=== PATIENT | male | born 2000 | race Caucasian/White ===

== ENCOUNTER 2019-05-30 15:45 | Emergency (ER) | payer OTHER ==
[~2019-05-30] VITALS: Ht 182.9 cm; Wt 122.5 kg
--- OUTSIDE RECORDS SUMMARY | ~2019-05-30 | XMS | Encounter Summary ---
Demographics + + + | Address | [address] | | | [place] [address] | + + + | Home Phone | | + + + | Preferred Language | Unknown | + + + | Marital Status | Single | + + + | Baptist Affiliation | Unknown | + + + | Race | Unknown | + + + | Ethnic Group | Unknown | + + + Author + + + | Author | [facility] | | | and [place] | + + + | Organization | [facility] | | | and [place] [...] Team Providers + +------+ + | Care Veterinary Medicine Scientist Name | Role | Phone | + +------+ + | No, Physician | PCP | Unavailable | + +------+ + Reason for Visit +--------+ + | Reason | Comments | +--------+ + | Other | ryc | +--------+ + Encounter Details +--------+ + + + + | Date | Type | Department | Care Team | Description | +--------+ + + + + | 12/13/ | Telephone | [facility] | No, Physician p | Other (ryc ) | | 2018 | | [facility] | | | | | | [facility] | | | | | | [address]TH [facility], | | | | | | [place] [address] | | | | | | [phone] | | | +--------+ + + + [...] on file | | + + + + + + + | Job Start Date | Occupation | Industry | + + + + | Not on file | Not on file | Not on file | + + + + + + + + | Travel History | Travel Start | Travel End | + + + + + + | No recent travel history available. | + + documented as of this encounter Plan of Treatment Not on filedocumented as of this encounter Visit Diagnoses Not on filedocumented in this encounter"
--- OUTSIDE RECORDS SUMMARY | ~2019-05-30 | XMS | Clinical Summary ---
Demographics + + + | Address | [address] | | | [place] [address] | + + + | Home Phone | | + + + | Preferred Language | Unknown | + + + | Marital Status | Single | + + + | Latter Day Affiliation | Unknown | + + + | Race | Unknown | + + + | Ethnic Group | Unknown | + + + Author + + + | Author | [facility] | | | and [place] | + + + | Organization | [facility] | | | and [place] [...] Team Providers + +------+ + | Care Faculty Criminal Justice Name | Role | Phone | + +------+ + | No, Physician | PCP | Unavailable | + +------+ + Allergies No Known Allergies Medications + + + +---------+------+------+-------+ | Medication | Sig | Dispensed | Refills | Star | End | Statu | | | | | | t | Date | s | | | | | | Date | | | + + + +---------+------+------+-------+ | naproxen | Take 1 tablet by | 30 | 0 | 11/0 | | Activ | | (NAPROSYN) 500 mg | mouth 2 times daily | tablet | | 7/20 | | e | | tabletIndications: | (with breakfast & | | | 18 | | | | Acute right ankle | dinner). | | | | | | | pain | | | | | | | + + + +---------+------+------+-------+ Active Problems + + + | Problem | Noted Date | + + + | Class 2 obesity due to excess calories without serious | 01/09/2018 | | comorbidity with body mass index (BMI) of 36.0 to 36.9 in adult | | + + + Immunizations + + + + | Name | Administration Dates | Next Due | + + + + | DTAP, 5 DOSE (PED) | 09/24/2003, 08/05/1999, 02/09/1999, | | | | 01/05/1999, 1998 | | + + + + | HEP A, 2 DOSE | 03/27/2012, 09/19/2006 | | | (PED/ADOL) | | | + + + + | HIB HBOC CONJUGATE, | 08/05/1999, 02/09/1999, 01/05/1999, | | | 4 DOSE (PED) | 1998 | | + + + + | HPV, QUADRIVALENT, 3 | 03/27/2012 | | | DOSE (ADOL/ADULT) | | | + + + + | Hep B (PED/ADOL) 3 | 02/09/1999, 01/05/1999, 1998, | | | DOSE | 1998 | | + + + + | INFLUENZA PF | 03/06/2012 | | | TRIVALENT(PED/ADOL/A | | | | DULT)LILLIANKT | | | + + + + | IPV, 4 DOSE | 09/24/2003, 08/05/1999, 01/05/1999, | | | (PED/ADULT) | 1998 | | + + + + | MENINGOCOCCAL | 03/27/2012 | | | CONJUGATE,MENACTRA | | | | (PED/ADOL/ADULT) | | | + + + + | MMR, 2 DOSE | 09/24/2003, 08/05/1999 | | | (PED/ADULT) | | | + + + + | TDAP, (ADOL/ADULT) | 03/27/2012 | | + + + + | VARICELLA, 2 DOSE | 03/27/2012, 08/05/1999 | | | (VARIVAX) | | | + + + + Social History + [...] recent travel history available. | + + Last Filed Vital Signs + + + [...] | | + + + + + Plan of Treatment + + + + + | Health Maintenance | Due Date | Last Done | Comments | + + + + + | Well Child Check | | | | | | 2 | | | + + + + + | Vaccine: HPV (2 - | | 03/27/2012 | | | Male 2-dose series) | 3 | | | + + + + + | Vaccine: Influenza | | 03/06/2012 | | | (Season Ended) | 0 | | | + + + + + | Vaccine: | | 03/27/2012, 09/24/2003, | | | Dtap/Tdap/Td (7 - | 3 | 08/05/1999, Additional history | | | Td) | | exists | | + + + + + Results Not on filefrom Last 3 Months Insurance + +--------+ +--------+ +---------+--------+ | Payer | Benefi | Subscriber | Effect | Phone | Address | Type | | | t Plan | ID | lazaro | | | | | | / | | Dates | | | | | | Group | | | | | | + +--------+ +--------+ +---------+--------+ | [employer] | SAIF | [id number] | 11/29/ | [phone] | | Indemn | | | WC | | 2018-P | 5 | | ity | | | | | resent | | | | + +--------+ +--------+ +---------+--------+ + +--------+ +--------+ + + | Guarantor Name | Accoun | Relation to | Date | Phone | Billing Address | | | t Type | Patient | of | | | | | | | | | | + +--------+ +--------+ + + | Suhail Zepeda | Worker | Self | [birth year] | | [address] | | | s Comp | | 2000 | [phone] | [place], [place] | | | | | | 4 (Home) | [phone] | + +--------+ +--------+ + + | Suhail Zepeda | Person | Self | [birth year] | | [address] | | | al/Fam | | 2000 | [phone] | [place], [place] | | | juan | | | 4 (Home) | [phone] | + +--------+ +--------+ + + Advance Directives + + + + + | Type | Date Recorded | Patient | Explanation | | | | Network Intern | | + + + + + | Power of | | | | | Car Unloader | | | | + + + + + | Advance | 12/12/2017 6:51 | | | | Directive | PM | | | + + + + +"
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
--- OUTSIDE RECORDS SUMMARY | ~2019-05-30 | XMS | Clinical Summary ---
Demographics + + + | Address | [address] | | | [place] [address] | + + + | Home Phone | | + + + | Preferred Language | Unknown | + + + | Marital Status | Single | + + + | Mandaeism Affiliation | Unknown | + + + | Race | Unknown | + + + | Ethnic Group | Unknown | + + + Author + + + | Author | [facility] | | | and [place] | + + + | Organization | [facility] | | | and [place] [...] Team Providers + +------+ + | Care Coke Production Heater Name | Role | Phone | + [...] | | + +--------+ +--------+ +---------+--------+ | [employer] | SAIF | [id number] | 11/29/ | [phone] | | Indemn | | | WC [...] | Self | [birth year] | | [address] | | | s Comp | | 2000 | [phone] | [place], [place] | | | | | | 4 (Home) | [address] | + +--------+ +--------+ + + | Suhail Zepeda | Person | Self | [birth year] | | [address] | | | al/Fam | | 2000 | [phone] | [place], [place] | | | juan | | | 4 (Home) | [phone] | + +--------+ +--------+ + + Advance Directives + + + + + | Type | Date Recorded | Patient | Explanation | | | | Cashier Receptionist | | + + + + + | Power of | | | | | Hospital Laboratory Technician | | | | + + + + + | Advance | 12/12/2017 6:51 | | | | Directive | PM | | | + + + + +"
--- OUTSIDE RECORDS SUMMARY | ~2019-05-30 | XMS | Encounter Summary ---
Demographics + + + | Address | [address] | | | [place] [address] | + + + | Home Phone | | + + + | Preferred Language | Unknown | + + + | Marital Status | Single | + + + | Gnosticist Affiliation | Unknown | + + + | Race | Unknown | + + + | Ethnic Group | Unknown | + + + Author + + + | Author | [facility] | | | and [place] | + + + | Organization | [facility] | | | and [place] [...] Team Providers + +------+ + | Care Continuous Loft Operator Name | Role | Phone | + [...] | Encounter | [facility] | BOAT TENDER-FLEET ASSISTANT [address] | right foot, | | | | [place] | [address] [place] | subsequent encounter | | | | [place], [place] | [place] [address] | | | | | [address] | [phone] | | | | | [phone] | | | +--------+ + + + [...] for pt to return clinic call at [phone] Ministerio Lloyd [facility]. documented in this encounter Plan of Treatment [...]
--- OUTSIDE RECORDS SUMMARY | ~2019-05-30 | XMS | Encounter Summary ---
Demographics + + + | Address | [address] | | | [place] [address] | + + + | Home Phone | | + + + | Preferred Language | Unknown | + + + | Marital Status | Single | + + + | Voodoo Affiliation | Unknown | + + + | Race | Unknown | + + + | Ethnic Group | Unknown | + + + Author + + + | Author | [facility] | | | and [place] | + + + | Organization | [facility] | | | and [place] [...] Team Providers + +------+ + | Care Mushroom Cutter Name | Role | Phone | + [...] (ryc ) | | 2018 | | [facility] | | | | | | MEDICAL CLINIC [address] | | | | | | [address]TH [facility], | | | | | | [place] [address] | | | | | | [phone] | | | +--------+ + + + [...]
--- OUTSIDE RECORDS SUMMARY | ~2019-05-30 | XMS | Encounter Summary ---
Demographics + + + | Address | [address] | | | [place] [address] | + + + | Home Phone [...] Author + + + | Author | [facility] | | | and [place] | + + + | Organization | [facility] | | | and [place] | + + + | Address | Unknown | + + + | Phone | Unavailable | + + + Support + + +---------+ + | Name | Relationship | Address | Phone | + + +---------+ + | Airma Mary | ECON | Unknown | | + + +---------+ + Care Team Providers + +------+ + | Care Meat Hanger Name | Role | Phone | + [...] ankle | | 2018 | Visit | [facility] | EMPLOYEE DEVELOPMENT MANAGER-CHUTE WORKER 506 | pain (Primary Dx); | | | | [facility] | [address] [place] | Crush injury of | | | | [address] [place], | [place] [address] | right foot, | | | | [place] [address] | [phone] | subsequent encounter | | | | [phone] | | | +--------+---------+ + + + [...] encounter Patient Instructions Patient Instructions Marybel Whiting APRN-CHUTE WORKER - 12/12/2017 6:24 PM PSTFormatting of thi [...] until the sp rain heals. Prescription or rutg-xzt-ojzcbnr pain medicines. These help reduce swelling and [...] get worse New symptoms Date Last Reviewed: 04/15/201519998828-0208 [employer] [place] [address]. All [facility] ts reserved. This information is not intended [...] walks on it. He was seen in [place] last week and they didn't do any [...] week and have him follow-up with [place] Return in about 1 week (around 12/19/2017) for Work Comp Provider. QUINCY BarreraP102/11/201718:36 [facility] Note: Part of this report was transcribed using voice recognition software. Every effort wa s made to ensure accuracy. However, inadvertent computerized improvement rn errors may be pre sent. documente d in this encounter Plan of Treatment [...]
--- OUTSIDE RECORDS SUMMARY | ~2019-05-30 | XMS | Encounter Summary ---
Demographics + + + | Address | [address] | | | [place] [address] | + + + | Home Phone | | + + + | Preferred Language | Unknown | + + + | Marital Status | Single | + + + | Methodist Affiliation | Unknown | + + + | Race | Unknown | + + + | Ethnic Group | Unknown | + + + Author + + + | Author | [facility] | | | and [place] | + + + | Organization | [facility] | | | and [place] [...] Team Providers + +------+ + | Care Operation Manager Name | Role | Phone | + [...] ankle | | 2018 | Visit | [facility] | RETAIL LEADER-SAWMILL EQUIPMENT OPERATOR [address] | pain (Primary Dx); | | | | [facility] [address] | [address] [place] | Crush injury of | | | | [address] [place], | [place] [address] | right foot, | | | | [place] [address] | [phone] | subsequent encounter | | | | [phone] | | | +--------+---------+ + + + [...] encounter Patient Instructions Patient Instructions Marybel Whiting APRN-SAWMILL EQUIPMENT OPERATOR - 12/12/2017 6:24 PM PSTFormatting of thi [...] until the sp rain heals. Prescription or txuq-hdx-tozlsko pain medicines. These help reduce swelling and [...] get worse New symptoms Date Last Reviewed: 04/15/201519990242-1523 [employer]. [address] [place] [address]. All [facility] ts reserved. This information is not intended [...] walks on it. He was seen in [place] last week and they didn't do any [...] 12/19/2017) for Work Comp Provider. QUINCY BarreraP102/11/201718:36 [facility], Walk-in Clinic Note: Part of this report was transcribed using voice recognition software. Every effort wa s made to ensure accuracy. However, inadvertent computerized group worker errors may be pre sent. documente d [...]
--- OUTSIDE RECORDS SUMMARY | ~2019-05-30 | XMS | Encounter Summary ---
Demographics + + + | Address | [address] | | | [place] [address] | + + + | Home Phone | | + + + | Preferred Language | Unknown | + + + | Marital Status | Single | + + + | Rastafarian Affiliation | Unknown | + + + | Race | Unknown | + + + | Ethnic Group | Unknown | + + + Author + + + | Author | and [facility] | | | and [place] | + + + | Organization | and [facility] | | | and [...] Team Providers + +------+ + | Care Sales Development Coordinator Name | Role | Phone | + [...] | Encounter | [facility] | RETAIL ASSISTANT-AIRCRAFT MAINTENANCE ENGINEER [address] | pain | | | | [address] [place] | [address] [place] | | | | | [place], [place] | [place] [address] | | | | | [address] | [phone] | | | | | [phone] | | | +--------+ + + + [...]
--- OUTSIDE RECORDS SUMMARY | ~2019-05-30 | XMS | Encounter Summary ---
Demographics + + + | Address | [address] | | | [place] [address] | + + + | Home Phone | | + + + | Preferred Language | Unknown | + + + | Marital Status | Single | + + + | Yazdanism Affiliation | Unknown | + + + | Race | Unknown | + + + | Ethnic Group | Unknown | + + + Author + + + | Author | [facility] | | | and [place] | + + + | Organization | [facility] | | | and [place] [...] Team Providers + +------+ + | Care Tractor Operator Battery Name | Role | Phone | + [...] | Encounter | [facility] | CERTIFIED SCRUB TECH-DIRECTOR OF INSTITUTIONAL GIVING [address] | pain | | | | [address] | [address] [place] | | | | | [place], [place] | [place] [address] | | | | | [address] | [phone] | | | | | [phone] | | | +--------+ + + + [...]
[~2019-05-30 15:45] MED LIST: CRUTCH1 EACH; IBUPROFEN600 MG PO
== END 2019-05-30 16:43 | disposition home or self-care (01) ==
LOC: ED 15:45
DX: S66.912A Strain of unspecified muscle, fascia and tendon at wrist and hand level, left hand, initial encounter (principal); Y04.0XXA Assault by unarmed brawl or fight, initial encounter
CPT/HCPCS: 73140; 99283-25

== ENCOUNTER 2019-07-29 12:48 | Emergency (ER) | payer OTHER ==
[~2019-07-29] VITALS: Ht 182.9 cm; Wt 108.9 kg
--- NOTE | 2019-07-29 15:32 | EKG ---
[facility] [address] [facility] [place], [place] [address] Signed Sinus tachycardia Otherwise normal ECG No previous ECGs available Confirmed by HELADIO MCKEON MD ([id number]) on 07/29/2019 3:32:11 PM Electronically Signed By: HELADIO MCKEON MD 07/29/19 1532 PATIENT NAME: ANDRIY VILA CRUZ Electrocardiogram DATE OF : 89 PHYSICIAN: HELADIO MCKEON MD REPORT #: [id number] REPORT IS CONFIDENTIAL AND NOT TO BE RELEASED WITHOUT AUTHORIZATION
== END 2019-07-29 14:49 | disposition home or self-care (01) ==
LOC: ED 12:48
DX: F41.9 Anxiety disorder, unspecified (principal); R06.4 Hyperventilation
CPT/HCPCS: 80053; 83735; 84484; 85025; 93005; 93010; 99284-25

== ENCOUNTER 2019-08-02 11:50 | Emergency (ER) | payer OTHER ==
[~2019-08-02] VITALS: Ht 182.9 cm; Wt 108.9 kg
--- OUTSIDE RECORDS SUMMARY | ~2019-08-02 | XMS | Encounter Summary ---
Demographics + + + | Address | [address] | | | [place] [address] | + + + | Home Phone | | + + + | Preferred Language | Unknown | + + + | Marital Status | Single | + + + | Oriental Orthodox Affiliation | Unknown | + + + | Race | Unknown | + + + | Ethnic Group | Unknown | + + + Author + + + | Author | [facility] | | | and [place] | + + + | Organization | [facility] | | | and [place] | + + + | Address | Unknown | + + + | Phone | Unavailable | + + + Support + + +---------+ + | Name | Relationship | Address | Phone | + + +---------+ + | Airam Mary | ECON | Unknown | | + + +---------+ + Care Team Providers + +------+ + | Care Academic Affairs Dean Name | Role | Phone | + +------+ + | No, Physician | PCP | Unavailable | + +------+ + Reason for Visit +--------+--------+ + | Reason | Onset | Comments | | | Date | | +--------+--------+ + | Other | 12/13/ | ryc | | | 2018 | | +--------+--------+ + Encounter Details +--------+ + + + + | Date | Type | Department | Care Team | Description | +--------+ + + + + | 12/13/ | Telephone | [place] [facility] | No, Physician p | Other ([facility] ) | | 2018 | | [facility] | | | | | | MEDICAL CLINIC [address] | | | | | | [address] [place], | | | | | | [place] [address] | | | | | | [phone] | | | +--------+ + + + + Social History + +-------+ +--------+------+ | Tobacco Use | Types | Packs/Day | Years | Date | | | | | Used | | + +-------+ +--------+------+ | Never Smoker | | | | | + +-------+ +--------+------+ + +---+---+---+ | Smokeless Tobacco: | | | | | Never Used | | | | + +---+---+---+ + + + | Sex Assigned at | Date Recorded | | | | + + + | Not on file | | + + + documented as of this encounter Miscellaneous Notes Telephone Encounter - Ministerio Lloyd CC CMA - 12/13/2017 4:41 PM PSTPt informed of result s. Understood and had no questions. Ministerio Lloyd CMA. elephone Encounte r - Ministerio Lloyd CC CMA - 12/13/2017 4:40 PM PST----- Message from ALISON Benito se at 12/13/2017 7:15 PST ----- No acute findings on your ankle x-ray. They did note a bone called Os Trigonum (extra bone that sometimes develops that could be associated with ankle pain. Continue symptomatic mathew tment and follow-up if no improvement with your primary care provider in the next 2 weeksEle ctronically signed by YESSY Blank CMA at 12/13/2017 4:40 PM PSTTelephone Encounter - Annamaria [place] - 12/13/2017 3:45 PM PSTPt states he is returning a call to [facility] Please call pt Thanks ANNAMARIA documented in t his encounter Plan of Treatment Not on filedocumented as of this encounter Visit Diagnoses Not on filedocumented in this encounter"
--- OUTSIDE RECORDS SUMMARY | ~2019-08-02 | XMS | Encounter Summary ---
Demographics + + + | Address | [address] | | | [place] [address] | + + + | Home Phone | | + + + | Preferred Language | Unknown | + + + | Marital Status | Single | + + + | Jehovah'S Witness Affiliation | Unknown | + + + | Race | Unknown | + + + | Ethnic Group | Unknown | + + + Author + + + | Author | [facility] | | | and [place] | + + + | Organization | [facility] | | | and [place] | [...] Team Providers + +------+ + | Care Dining Room Host/Hostess Name | Role | Phone | + +------+ + | No, Physician | PCP | Unavailable | + +------+ + Reason for Visit + + + | Reason | Comments | + + + | Foot Injury | right foot injury x 2 weeks Workers Comp | + + + Encounter Details +--------+---------+ + + + | Date | Type | Department | Care Team | Description | +--------+---------+ + + + | 12/12/ | Office | [place] [facility] | Marybel Whiting, | Acute right ankle | | 2018 | Visit | [facility] | HISTORIOGRAPHY TEACHER-DOORPERSON OR LUGGAGE PORTER [address] | pain (Primary Dx); | | | | [facility] [address] | [address] [place] | Crush injury of | | | | [address] [place], | [place] [address] | right foot, | | | | [place] [address] | [phone] | subsequent encounter | | | | [phone] | | | +--------+---------+ + + + Social History + +-------+ [...] + + documented as of this encounter Last Filed Vital Signs + + + + + | Vital Sign | Reading | Time Taken | Comments | + + + + + | Blood Pressure | 130/76 | 12/12/2017 5:43 PM | | | | | PST | | + + + + + | Pulse | 62 | 12/12/2017 5:43 PM | | | | | PST | | + + + + + | Temperature | 36.6 C (97.9 F) | 12/12/2017 5:43 PM | | | | | PST | | + + + + + | Respiratory Rate | 20 | 12/12/2017 5:43 PM | | | | | PST | | + + + + + | Oxygen Saturation | 100% | 12/12/2017 5:43 PM | | | | | PST | | + + + + + | Inhaled Oxygen | - | - | | | Concentration | | | | + + + + + | Weight | 120.7 kg (266 lb) | 12/12/2017 5:43 PM | | | | | PST | | + + + + + | Height | 182.9 cm (6') | 12/12/2017 5:43 PM | | | | | PST | | + + + + + | Body Mass Index | 36.08 | 12/12/2017 5:43 PM | | | | | PST | | + + + + + documented in this encounter Patient Instructions Patient Instructions Marybel Whiting HISTORIOGRAPHY TEACHER-DOORPERSON OR LUGGAGE PORTER - 12/12/2017 6:24 PM PSTFormatting of thi s note might be different from the original. Understanding Ankle Sprain The ankle is the joint where the leg and foot meet. Bones are held in place by connective t issue called ligaments. When ankle ligaments are stretched to the point of pain and injury, it is called an ankle sprain. A sprain can tear the ligaments. These tears can be very small but still cause pain. Ankle sprains can be mild or severe. What causes an ankle sprain? A sprain may occur when you twist your ankle or bend it too far. This can happen when you s tumble or fall. Things that can make an ankle sprain more likely include: Having had an ankle sprain before Playing sports that involve running and jumping. Or playing contact sports such as footb all or hockey. Wearing shoes that don t support your feet and ankles well Having ankles with poor strength and flexibility Symptoms of an ankle sprain Symptoms may include: Pain or soreness in the ankle Swelling Redness or bruising Not being able to walk or put weight on the affected foot Reduced range of motion in the ankle A popping or tearing feeling at the time the sprain occurs An abnormal or dislocated look to the ankle Instability or too much range of motion in the ankle Treatment for an ankle sprain Treatment focuses on reducing pain and swelling, and avoiding further injury. Treatments ma y include: Resting the ankle. Avoid putting weight on it. This may mean using crutches until the sp rain heals. Prescription or kxqv-ywc-cpclroa pain medicines. These help reduce swelling and pain. Cold packs. These help reduce pain and swelling. Raising your ankle above your heart. This helps reduce swelling. Wrapping the ankle with an elastic bandage or ankle brace. This helps reduce swelling an d gives some support to the ankle. In rare cases, you may need a cast or boot. Stretching and other exercises. These improve flexibility and strength. Heat packs. These may be recommended before doing ankle exercises. Possible complications of an ankle sprain An ankle that has been weakened by a sprain can be more likely to have repeated sprains aft erward. Doing exercises to strengthen your ankle and improve balance can reduce your risk fo r repeated sprains. Other possible complications are long-term (chronic) pain or an ankle th at remains unstable. When to call your healthcare provider Call your healthcare provider right away if you have any of these: Fever of 100.4F (38C) or higher, or as directed Pain, numbness, discoloration, or coldness in the foot or toes Pain that gets worse Symptoms that don t get better, or get worse New symptoms Date Last Reviewed: 04/15/201519991994-1448 [employer] [address] [place] [address], [place] [address]. All righ ts reserved. This information is not intended as a substitute for professional medical care. Always follow your healthcare professional's instructions. documented in this encounter Progress Notes Marybel Whiting APRN-FNP - 12/12/2017 4:50 PM PSTFormatting of this note might be diffe rent from the original. Subjective: Patient ID: Suhail Zepeda is a 17 y.o. male. Chief Complaint Chief Complaint Patient presents with Foot Injury right foot injury x 2 weeks Workers Comp HPI Here today with complaints of right ankle pain for two weeks. This is a workman's comp visi t. Says he was pulling a heavy trailer at work on 11/29/2017 and the front wheel ran over th e top of his foot and stopped on his foot. He tried to pull his foot out and ended up twisti ng his ankle. The first day he had some swelling to his lateral ankle. He feels like his ankle is snappin g and popping when he walks on it. He was seen in [place] last week and they didn't do any imaging. He filed it under his own insurance. They gave him an ankle brace that supports hi s ankle which seems to help some. He hasn't tried any otc pain medication. Overall doesn't s eem to be improving; feels it is getting worse. He is working 10 hour shifts and doesn't fee l he can continue because it is so painful. No past medical history on file. No past surgical history on file. Review of Systems See [facility] No Known Allergies There are no active problems to display for this patient. No current outpatient prescriptions on file prior to visit. No current facility-administered medications on file prior to visit. Objective: Vitals: 12/12/17 1743 BP: 130/76 Pulse: 62 Resp: 20 Temp: 36.6 C (97.9 F) PainSc: 7 PainLoc: Foot Physical Exam Constitutional: He is oriented to person, place, and time. He appears well-developed and we ll-nourished. No distress. Musculoskeletal: Right ankle: He exhibits normal range of motion, no swelling, no ecchymosis, no deform ity and normal pulse. Tenderness. Lateral malleolus and AITFL tenderness found. No medial ma lleolus, no CF ligament, no posterior TFL, no head of 5th metatarsal and no proximal fibula tenderness found. Achilles tendon normal. Right foot: There is tenderness, bony tenderness and crepitus. There is normal range o f motion and no swelling. Feet: Neurological: He is alert and oriented to person, place, and time. Coordination normal. Skin: Skin is warm and dry. No rash noted. No erythema. No pallor. Psychiatric: He has a normal mood and affect. His behavior is normal. Judgment and thought content normal. No results found for this or any previous visit (from the past 24 hour(s)). XR FOOT RIGHT 3 + VW XR ANKLE RIGHT 3 + VW Assessment: 1. Acute right ankle pain - naproxen (NAPROSYN) 500 mg tablet; Take 1 tablet by mouth 2 times daily (with breakfast & dinner). Dispense: 30 tablet; Refill: 0 - XR Ankle Right 3 + Vw; Future 2. Crush injury of right foot, subsequent encounter - XR Foot Right 3 + Vw; Future Plan: Reported right foot crush injury with twisting ankle injury two weeks ago at work. Minimal swelling and discoloration at time of injury none in currently. Reports he continues to hav e severe pain right lateral malleolus and right footed with weightbearing and complains of c repitus to his ankle while he is walking. Since he is unable to continue standing and walki ng for 10 hours a day at work. Medical exam is pretty unremarkable. She does have some ten derness in the right lateral malleolus and right fourth metatarsal on exam. Will order righ t ankle and right foot x-ray. Light duty for a week and have him follow-up with workman's c omp doc in 1 week Return in about 1 week (around 12/19/2017) for Work Comp Provider. QUINCY BarreraP102/11/201718:36 [facility] Note: Part of this report was transcribed using voice recognition software. Every effort wa s made to ensure accuracy. However, inadvertent computerized studio producer errors may be pre sent. angie d in this encounter Plan of Treatment Not on filedocumented as of this encounter Results XR Foot Right 3 + Vw (12/12/2017 7:07 PM PST) + + | Specimen | + + | | + + + + + | Impressions | Performed At | + + + | IMPRESSION: No acute finding Bifid sesamoid bone 1st toe. | [facility] | | This finding can be associated with pain. Dictated by: Rene Muñiz | | | AM | | + + + + + + | Narrative | Performed At | + + + | EXAMINATION: XR FOOT RIGHT 3 + VW HISTORY: right foot pain | [facility] | | after crush injury two weeks ago COMPARISON STUDY: None | | | FINDINGS: Images in multiple views showed no significant soft tissue | | | or bony abnormality. If concern for acute fracture remains clinically | | | follow-up images in 10 to 14 days recommended. Bifid sesamoid bone | | | 1st toe.. | | + + + + + | Procedure Note | + + | Yair, Inocencio Results In - 12/13/2017 7:00 AM PST EXAMINATION:XR FOOT RIGHT 3 + | | VWHISTORY:right foot pain after crush injury two weeks agoCOMPARISON | | STUDY:NoneFINDINGS:Images in multiple views showed no significant soft tissue or bony | | abnormality.If concern for acute fracture remains clinically follow-up images in 10 to | | 14 days recommended. Bifid sesamoid bone 1st toe..IMPRESSION: IMPRESSION:No acute | | findingBifid sesamoid bone 1st toe. This finding can be associated with pain.Dictated | | by: Rene Muñiz | |None | | | |FINDINGS: | |Images in multiple views showed no significant soft tissue or bony abnormality. | |If concern for acute fracture remains clinically follow-up images in 10 to 14 days recommen ded. Bifid sesamoid bone 1st toe.. | | | |IMPRESSION: | |IMPRESSION: | |No acute finding | | | |Bifid sesamoid bone 1st toe. This finding can be associated with pain. | | | |Dictated by: Rene Muñiz | | | | | + + + +---------+ + + | Performing | Address | City/State/Zipcode | Phone Number | | Organization | | | | + +---------+ + + | [facility] | | | | + +---------+ + + XR Ankle Right 3 + Vw (12/12/2017 7:06 PM PST) + + | Specimen | + + | | + + + + + | Impressions | Performed At | + + + | IMPRESSION: No acute finding Os trigonum dorsal ankle. This | [facility] | | finding can be associated with dorsal ankle pain. Dictated by: | | | Rene Muñiz Electronically Signed by: Rene Muñiz on | | | 12/13/2017 6:56 AM | | + + + + + + | Narrative | Performed At | + + + | EXAMINATION: XR ANKLE RIGHT 3 + VW HISTORY: right ankle pain | [facility] | | for two weeks after twisting it during a right foot crush injury | | | COMPARISON STUDY: None FINDINGS: Images in multiple views showed | | | no significant soft tissue or bony abnormality. If concern for acute | | | fracture remains clinically follow-up images in 10 to 14 days | | | recommended. Os trigonum dorsal ankle.. | | + + + + + | Procedure Note | + + | Yair, Rad Results In - 12/13/2017 7:00 AM PST EXAMINATION:XR ANKLE RIGHT 3 + | | VWHISTORY:right ankle pain for two weeks after twisting it during a right foot crush | | injuryCOMPARISON STUDY:NoneFINDINGS:Images in multiple views showed no significant soft | | tissue or bony abnormality.If concern for acute fracture remains clinically follow-up | | images in 10 to 14 days recommended. Os trigonum dorsal ankle..IMPRESSION: IMPRESSION:No | | acute findingOs trigonum dorsal ankle. This finding can be associated with dorsal | | ankle pain.Dictated by: Rene MuñizElectronically Signed by: Rene Muñiz on | | 12/13/2017 6:56 AM | | | |FINDINGS: | |Images in multiple views showed no significant soft tissue or bony abnormality. | |If concern for acute fracture remains clinically follow-up images in 10 to 14 days recommen ded. Os trigonum dorsal ankle.. | | | |IMPRESSION: | |IMPRESSION: | |No acute finding | | | |Os trigonum dorsal ankle. This finding can be associated with dorsal ankle pain. | | | |Dictated by: Rene Muñiz | | | | | + + + +---------+ + + | Performing | Address | City/State/Zipcode | Phone Number | | Organization | | | | + +---------+ + + | [facility] | | | | + +---------+ + + documented in this encounter Visit Diagnoses + + | Diagnosis | + + | Acute right ankle pain - Primary | + + | Crush injury of right foot, subsequent encounter | + + documented in this encounter"
--- OUTSIDE RECORDS SUMMARY | ~2019-08-02 | XMS | Encounter Summary ---
Demographics + + + | Address | [address] | | | [place] [address] | + + + | Home Phone | | + + + | Preferred Language | Unknown | + + + | Marital Status | Single | + + + | Restorationism Affiliation | Unknown | + + + | Race | Unknown | + + + | Ethnic Group | Unknown | + + + Author + + + | Author | [facility] | | | and [place] | + + + | Organization | [facility] | | | and [place] [...] Team Providers + +------+ + | Care Incubator Tender Name | Role | Phone | + +------+ + | No, Physician | PCP | Unavailable | + +------+ + Encounter Details +--------+ + + + + | Date | Type | Department | Care Team | Description | +--------+ + + + + | 12/12/ | Hospital | [place] [facility] | Marybel Whiting, | Acute right ankle | | 2018 | Encounter | [facility] | BROADLOOM WEAVER-ANATOMY PROFESSOR [address] | pain | | | | [address] | [address] [place] | | | | | [place], [place] | [place] [address] | | | | | [address] | [phone] | | | | | [phone] | | | +--------+ + + + [...] + + documented as of this encounter Medications at Time of Discharge + + + +---------+ + + | Medication | Sig | Dispensed | Refills | Start | End Date | | | | | | Date | | + + + +---------+ + + | naproxen | Take 1 tablet by | 30 | 0 | 12/13/19 | | | (NAPROSYN) 500 mg | mouth 2 times daily | tablet | | 18 | | | tabletIndications: | (with breakfast & | | | | | | Acute right ankle | dinner). | | | | | | pain | | | | | | + + + +---------+ + + documented as of this encounter Plan of Treatment Not on filedocumented as of this encounter Procedures + +--------+ + + + | Procedure Name | Priori | Date/Time | Associated Diagnosis | Comments | | | ty | | | | + +--------+ + + + | XR ANKLE RIGHT 3 + | Routin | 12/12/2017 | Acute right ankle | Results for this | | VW | e | 7:06 PM | pain | procedure are in the | | | | PST | | results section. | + +--------+ + + + documented in this encounter Results XR Ankle Right 3 + Vw (12/12/2017 [...] + + | Acute right ankle pain | + + documented in this encounter"
--- OUTSIDE RECORDS SUMMARY | ~2019-08-02 | XMS | Clinical Summary ---
Demographics + + + | Address | [address] | | | [place] [address] | + + + | Home Phone | | + + + | Preferred Language | Unknown | + + + | Marital Status | Single | + + + | Church Affiliation | Unknown | + + + | Race | Unknown | + + + | Ethnic Group | Unknown | + + + Author + + + | Author | [facility] | | | and [place] | + + + | Organization | [facility] | | | and [place] [...] Team Providers + +------+ + | Care Pet House Sitter Name | Role | Phone | + [...] Influenza | | 03/06/19 | | | (Season Ended) | 0 | 13 | | + [...] | | + +--------+ +--------+ +---------+--------+ | Admittor | [employer] | [phone] | 11/29/ | [phone] | | Indemn | | | WC [...] | Self | [birth year] | | [address] | | | s Comp | | 2000 | [phone] | [place] | | | | | | 4 (Home) | [phone] | + +--------+ +--------+ + + | Suhail Zepeda | Person | Self | [birth year] | | [address] | | | al/Fam | | 2000 | [phone] | [place] | | | juan | | | 4 ([place]) | [phone] | + +--------+ +--------+ + + Advance Directives + + + + + | Type | Date Recorded | Patient | Explanation | | | | Saas Architect | | + + + + + | Power of | | | | | Chlorinator Operator | | | | + + + + + | Advance | 12/12/2017 6:51 | | | | Directive | PM | | | + + + + +"
--- OUTSIDE RECORDS SUMMARY | ~2019-08-02 | XMS | Encounter Summary ---
Demographics + + + | Address | [address] | | | [place] [address] | + + + | Home Phone | | + + + | Preferred Language | Unknown | + + + | Marital Status | Single | + + + | Mu-Ism Affiliation | Unknown | + + + | Race | Unknown | + + + | Ethnic Group | Unknown | + + + Author + + + | Author | [facility] | | | and [place] | + + + | Organization | [facility] | | | and [...] Team Providers + +------+ + | Care Jet Handler Name | Role | Phone | + [...] | Encounter | [facility] | SALES LEAD GENERATOR-TRAINING FACILITATOR [address] | right foot, | | | | [place] | [address] [place] | subsequent encounter | | | | [place], [place] | [place] [address] | | | | | [address] | [phone] | | | | | [phone] | | | +--------+ + + + [...] for pt to return clinic call at [phone] [facility]. documented in this encounter Plan [...]
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
== END 2019-08-02 13:34 | disposition home or self-care (01) ==
LOC: ED 11:50
DX: S60.221A Contusion of right hand, initial encounter (principal); W22.8XXA Striking against or struck by other objects, initial encounter
CPT/HCPCS: 73130; 73140; 99283-25

== ENCOUNTER 2019-09-28 07:18 | Emergency (ER) | payer OTHER ==
[~2019-09-28] VITALS: Ht 182.9 cm; Wt 108.9 kg
--- OUTSIDE RECORDS SUMMARY | ~2019-09-28 | XMS | Clinical Summary ---
Demographics + + + | Address | [address] [place] [address] | | | [place] [address] | + + + | Home Phone | | + + + | Preferred Language | Unknown | + + + | Marital Status | Single | + + + | Latter Day Affiliation | Unknown | + + + | Race | White | + + + | Ethnic Group | Not or | + + + Author + + + | Author | [facility] | | | and [place] | + + + | Organization | [facility] | | | and [place] | [...] Team Providers + +------+ + | Care Computer Engineering Technician Name | Role | Phone | + [...] on file | | + + + Last Filed Vital Signs + [...] Health Maintenance | Due Date | Last | Comments | | | | Done | | + + + + + | Hepatitis C | | | | | Screening | 9 | | | + + + + + | Med Mgmt: BUN | | | | | | 9 | | | + + + + + | Med Mgmt: Cr | | | | | | 9 | | | + + + + + | Medication | | | | | Management | 9 | | | + + + + + | Well Child Check | | | | | | 2 | | | + + + + + | Vaccine: HPV (2 - | | 03/27/19 | | | Male 2-dose series) | 3 | 13 | | + + + + + | Vaccine: Influenza | | 03/06/19 | | | (#1) | 0 | 13 | | + + + + + | Vaccine: | | 03/27/19 | | | Dtap/Tdap/Td (7 - | 3 | 13, | | | Td) | | 09/24/19 | | | | | 04, | | | | | 08/05/19 | | | | | 00, | | | | | Addition | | | | | al | | | | | history | | | | | exists | | + + [...] | | + +--------+ +--------+ +---------+--------+ | [employer] | SAIF | [phone] | 11/29/ | [phone] | | Indemn | | | WC [...] Worker | Self | [birth year] | | [address] [place] [address] | | | s Comp | | 2000 | [phone] | [place] | | | | | | 4 (Home) | [phone] | + +--------+ +--------+ + + | Suhail Zepeda | Person | Self | [birth year] | | [address] | | | al/Fam | | 2000 | [phone] | [place], [place] | | | juan | | | 4 (Home) | [phone] | + +--------+ +--------+ + + Advance Directives + + + + + | Type | Date Recorded | Patient | Explanation | | | | Ase Certified Technician | | + + + + + | Power of | | | | | Senior Research Executive | | | | + + + + + | Advance | 12/12/2017 6:51 | | | | Directive | PM | | | + + + + +"
--- OUTSIDE RECORDS SUMMARY | ~2019-09-28 | XMS | Encounter Summary ---
Demographics + + + | Address | [address] [place] [address] | | | [place] [address] | + + + | Home Phone | | + + + | Preferred Language | Unknown | + + + | Marital Status | Single | + + + | Yazidi Affiliation | Unknown | + + + | Race | White | + + + | Ethnic Group | Not or | + + + Author + + + | Author | [facility] | | | and [place] | + + + | Organization | [facility] | | | [...] Team Providers + +------+ + | Care Expedition Supervisor Name | Role | Phone | + [...] [facility] | No, Physician p | Other ([facility] ) | | 2017 | | [facility] | | | | | | [facility] [address] | | | | | | [address] [place], | | | | | | [place] [address] | | | | | | [phone] | | | +--------+ + + + [...] states he is returning a call to [facility] Please call pt Thanks ANNAMARIA documented in t his encounter Plan of Treatment Not on filedocumented as of this encounter Visit Diagnoses Not on filedocumented in this encounter"
--- OUTSIDE RECORDS SUMMARY | ~2019-09-28 | XMS | Encounter Summary ---
Demographics + + + | Address | [address] [place] [address] | | | [place] [address] | + + + | Home Phone | | + + + | Preferred Language | Unknown | + + + | Marital Status | Single | + + + | Spiritism Affiliation | Unknown | + + + | Race | White | + + + | Ethnic Group | Not or | + + + Author + + + | Author | [facility] | | | and [place] | + + + | Organization | [facility] | | | and [...] Team Providers + +------+ + | Care Public Health Inspector Name | Role | Phone | + [...] 12/12/ | Office | [place] [facility] | HenokMarybel, | Acute right ankle | | 2018 | Visit | [facility] | DENTAL FINANCIAL COORDINATOR-DRAMATIC COACH [address] | pain (Primary Dx); | | | | [facility] [address] | [address] | Crush injury of | | | | [address] [place], | [address] | right foot, | | | | [place] [address] | [place] [address] | subsequent encounter | | | | [phone] | [phone] | | | | | | | | +--------+---------+ + + + [...] encounter Patient Instructions Patient Instructions Marybel Whiting APRN-DRAMATIC COACH - 12/12/2017 6:24 PM PSTFormatting of thi [...] until the sp rain heals. Prescription or huvq-fyw-cvwtjuo pain medicines. These help reduce swelling and [...] get worse New symptoms Date Last Reviewed: 04/15/201519995502-9342 [employer]. [address] [place] [address]. All righ ts reserved. This information is not intended as a substitute for professional medical care. Always follow your healthcare professional's instructions. documented in this encounter Progress Notes Marybel Whiting, DENTAL FINANCIAL COORDINATOR-DRAMATIC COACH - 12/12/2017 4:50 PM PSTFormatting of this [...] walks on it. He was seen in [place] last week and they didn't do any [...] history on file. Review of Systems See HPI No Known Allergies There are no active [...] week (around 12/19/2017) for Work Comp Provider. TUSHAR Barrera02/11/201718:36 [facility] Walk-in [facility] Note: Part of this report was transcribed using voice recognition software. Every effort wa s made to ensure accuracy. However, inadvertent computerized broadcaster errors may be pre sent. angie chaidez in this encounter Plan of Treatment Not [...] | Procedure Note | + + | Inocencio Mazariegos Results In - 12/13/2017 7:00 AM PST [...]
--- OUTSIDE RECORDS SUMMARY | ~2019-09-28 | XMS | Encounter Summary ---
Demographics + + + | Address | [address] [place] [address] | | | [place] [id number] | + + + | Home Phone | | + + + | Preferred Language | Unknown | + + + | Marital Status | Single | + + + | Yazidism Affiliation | Unknown | + + + | Race | White | + + + | Ethnic Group | Not or | + + + Author + + + | Author | [facility] | | | and [place] | + + + | Organization | [facility] | | | and [...] Team Providers + +------+ + | Care Community Nutrition Educator Name | Role | Phone | + +------+ + | No, Physician | PCP | Unavailable | + +------+ + Encounter Details +--------+ + + + + | Date | Type | Department | Care Team | Description | +--------+ + + + + | 12/12/ | Hospital | [facility] | Marybel Whiting, | Acute right ankle | | 2018 | Encounter | [facility] | BOILING OFF WINDER-ANALYTICAL RESEARCH CHEMIST [id number] | pain | | | | [address] | [facility] | | | | | [place] | [address] | | | | | [address] | [place] [address] | | | | | [phone] | [phone] | | | | | | | | +--------+ + + + [...]
--- OUTSIDE RECORDS SUMMARY | ~2019-09-28 | XMS | Encounter Summary ---
Demographics + + + | Address | [address] [place] [address] | | | [place] [address] | + + + | Home Phone | | + + + | Preferred Language | Unknown | + + + | Marital Status | Single | + + + | Muslim Affiliation | Unknown | + + + | Race | White | + + + | Ethnic Group | Not or | + + + Author + + + | Author | [facility] | | | and [place] | + + + | Organization | [facility] | | | [...] Team Providers + +------+ + | Care Sheet Metal Worker Apprentice Name | Role | Phone | + +------+ + | No, Physician | PCP | Unavailable | + +------+ + Encounter Details +--------+ + + + + | Date | Type | Department | Care Team | Description | +--------+ + + + + | 12/12/ | Hospital | [facility] | Marybel Whiting, | Crush injury of | | 2018 | Encounter | H[facility]RAY [facility] | TRANSCRIPTION TYPIST-PET CARE ATTENDANT [id number] | right foot, | | | | [address] | [address] | subsequent encounter | | | | [place] | [facility] [address] | | | | | [address] | [place] [address] | | | | | [phone] | [phone] | | | | | | | [...] for pt to return clinic call at [phone] Ministerio Lloyd [facility]. documented in this encounter Plan [...]
== END 2019-09-28 09:35 | disposition home or self-care (01) ==
LOC: ED 07:18
DX: S61.212A Laceration without foreign body of right middle finger without damage to nail, initial encounter (principal); W45.8XXA Other foreign body or object entering through skin, initial encounter
CPT/HCPCS: 12001; 90471; 90715; 99283

== ENCOUNTER 2020-04-07 13:01 | Emergency (ER) | payer OTHER ==
[~2020-04-07] VITALS: Ht 182.9 cm; Wt 108.9 kg
== END 2020-04-07 21:19 | disposition short-term general hospital (02) ==
LOC: ED 13:01
DX: K85.90 Acute pancreatitis without necrosis or infection, unspecified (principal)
CPT/HCPCS: 74178; 80053; 80061; 81001; 83690; 85025; 96375; 96376; 99285-25; C9803; J1885; J2270; J2405; J2543; J7030; J7121; Q9967; U0003

== ENCOUNTER 2020-11-03 13:14 | Inpatient (IN) | payer OTHER ==
[~2020-11-03] VITALS: Ht 182.9 cm; Wt 118.0 kg
--- NOTE | 2020-11-03 18:51 | NUR ---
PT TO FLOOR VIA STRETCHER WITH AMY GUZMÁN. PT VERY PAINFUL. GIVEN .5 DIDAUDID AND HOOKED TO TELE PER ORDER. PT STATES IT USUALLY ONLY HELPS FOR BRIEF AMT TIME. VS STABLE.
--- NOTE | 2020-11-03 20:09 | NUR ---
on room air, coop with admit assessment. medicated iwth dilaudid 1mg iv. c/o 09/14 abd pain. lungs clear. abd tender, hea, no edema, R and L AC SL patent. will start IVF as soon as available from car and yard supervisor, charge nurse aware. turns and repositions self in bed. NPO. oral sponges at bedside
--- NOTE | 2020-11-03 21:43 | NUR ---
up to br, voided, c/o 10/15 abd pain, medicated iwth dilaudid 1mg iv
--- NOTE | 2020-11-04 00:28 | NUR ---
WAS MEDICATED WITH DILAUDID EARLIER, 09/14 ABD PAIN. TOLERATING LIQUIDS WELL, NO EMESIS, UP TO BR, VOIDED, IVF INFUSING AT THIS TIME
--- NOTE | 2020-11-04 01:09 | NUR ---
Up to br, c/o abd pain all over abd, medicated with dilaudid 1mg iv. voided dark yellow urine, back to bed sba, tolerating liquids well, no emesis
--- NOTE | 2020-11-04 02:36 | NUR ---
restless moving in bed, co abd pain, medicated with Dilaudid 1mg IV
--- NOTE | 2020-11-04 03:55 | NUR ---
sitting up in bed, awake, alert and oriented, on room air, denies passing gas, c/o abd pain. medicated with Dilaudid 1mg iv. IVF infusing w/o problems
--- NOTE | 2020-11-04 05:30 | NUR ---
in to get vitals, ice water provided, pt asking for pain meds, rn is on her way, no further needs at this time
--- NOTE | 2020-11-04 05:55 | NUR ---
Up to br, voided, encouraged to use urinal or hat in toilet, stated understanding. c/o 09/14 abd cramping like needles" state, denies passing gas or having bm's. medicated with Dilaudid 1mg IV. IVf infusing
--- NOTE | 2020-11-04 05:56 | NUR ---
On room air, no bm, denies passing gas, abd tender, active bowel tones. c/o abd pain, has been medicated with Dilaudid 1mg IV 8x with fair to poor pain relief, watm compress to abd too. no emesis, tolerating clear liquids. IVF infusing w/o problems. tele#[address] bradychardia, heart rate 40-60's, denies dizziness or lightheadness. SBA. cooperative
--- NOTE | 2020-11-04 07:11 | NUR ---
standing edge of bed, c/o abd pain, medicated with Dilaudid 1mg IV. tolerating clear liquids, no emesis
--- NOTE | 2020-11-04 09:39 | NUR ---
PT REPORTING PAIN 8/10. 1MG DILAUDID ADMISNTERED. DR MCKEON TO BEDSIDE FOR ROUNDING AND DISCUSSING PLAN OF CARE.
--- NOTE | 2020-11-04 10:03 | NUR ---
REPORT RECEIVED FROM NIGHT RN AND PT. CARE RESUMED. PT. IS ALERT AND ORIENTED. C/O 9/10 PAIN THROUGHOUT ABDOMEN THAT IS WORSE ON LEFT SIDE. ADMIN. DILAUDID. IV SITES WNL AND FLUSHES WELL. PT. AMBULATED WITH SBA TO BATHROOM TO VOID. DISCUSSED POC, PAIN MANAGEMENT AND MEDS. LEFT RESTING WITH CALL LIGHT IN REACH.
--- NOTE | 2020-11-04 11:34 | NUR ---
THIS NURSE WAS NOTIFIED THAT DATA DELIVERABLES MANAGER DILAUDID WILL NOT BE READY FOR 2 HOURS. MD NOTIFIED AND VERBAL ORDER GIVEN FOR PRN DILAUDID.
--- NOTE | 2020-11-04 11:43 | NUR ---
PT. ADMIN DILAUDID PRN UNTIL HOT KNIFE CUTTER MED. ARRIVES.
[2020-11-04] MEDS ORDERED: PROTONIX40 MG PO (11:48)
[2020-11-04] MEDS ORDERED: CREON DR 6,0001 EACH PO (11:52)
[2020-11-04] MEDS ORDERED: ONDANSETRON ODT8 MG PO (11:52)
--- NOTE | 2020-11-04 11:53 | NUR ---
MED REC COMPLETE
--- NOTE | 2020-11-04 13:00 | NUR ---
SPOKE WITH PATIENT IN ROOM. PATIENT STATES HE IS IN TOWN VISITING HIS DAD. LIVES IN [place] WITH FRIENDS. MOM LIVES THERE TOO. HE DOES NOT USE ANY DME. OWNS A BUSINESS REPAIRING MOTORCYCLES. DRIVES. PLANS TO RETURN AFTER DISCHARGE. STATES UNDERSTANDING OF PCP NEED, STATES HIS MOM TOLD HIM THIS TOO AND SHE IS GETTING HIM ONE IN [place]. PATIENT DENIES WORRY OF COST OF MEDS/FOOD/UTILTIES. PATIENT STATES HE DOES NOT DRINK ANYMORE. DENIES NEEDING HELP WITH THAT. FEELS SAFE TO DISCHARGE TO HOME. NO BARRIERS KNOWN AT THIS TIME.
--- NOTE | 2020-11-04 13:31 | NUR ---
ROUNDING ON PT. HE STATES PAIN IS BETTER CONTROLLED WITH SEE SUPERVISOR. RR IS 16 AND 02 SAT IS 100% ON RA. TELE WITH PULSE OX IN PLACE. PT DENIES FURTHER NEED.
--- NOTE | 2020-11-04 14:45 | NUR ---
ROUNDING ON PT. HE STATES HIS PAIN IS "OKAY" AND MAGAZINE DESIGNER IS HELPING. PAIN THROUGHOUT ABDOMEN BUT WORSE IN LUQ. O2 SAT IS 96% ON RA AND RR IS 15. TOLERATING SIPS OF WATER. IV SITES WNL. PT. LEFT RESTING WITH CALL LIGHT IN REACH.
--- NOTE | 2020-11-04 16:03 | NUR ---
PT. REPORTS ABD PAIN TOLERABLE. O2 SAT IS 100% ON RA AND RR IS 18. PT. LEFT RESTING WITH CALL LIGHT IN REACH.
--- NOTE | 2020-11-04 16:16 | NUR ---
ROUNDING ON PT. HE IS IN THE BATHROOM AND STATES "i'M TRYING TO CRAP". WILL CHECK ON LATER.
--- NOTE | 2020-11-04 16:25 | NUR ---
PT. REPORTS HE HAD A SMALL BM THAT WAS HARD AND PELLET LIKE. WILL CONTINUE TO MONITOR FOR CONSTIPATION.
--- NOTE | 2020-11-04 21:14 | NUR ---
ON ROOM AIR, BIOINFORMATICS PROGRAMMER CARTRIDGE CHANGED, STATED PAIN LEVEL IS ACCEPTABLE. TELE#[address] W CPOX, PT AMBULATING IN ROOM, VOIDING LARGE AMOUNTS OF QS URINE. IVF INFUSING W/O PROBLEMS. VISIITNG WITH SIGNIFICANT OTHER. COOP.
--- NOTE | 2020-11-04 22:28 | NUR ---
PT AWAKE, COOP WTIH ASSESSMENT. ON ROOM AIR, LUNGS CLEAR BILAT, ABD TENDER, FREEDOM, HAS CITY MAIL CARRIER DILAUDID IN PLACE WITH PAIN CONTROL, VOIDING QS CLEAR YELLOW URINE.PT STATED THAT " i FEEL LIKE THE INFLAMATION FROM MY AND HAS GONE TO MY BLADDER, ITS TAKING LONGER FOR ME TO URINATE THAN BEFORE" WILL NOTIFY MD BENTON SOFT, TENDER, FREEDOM, HAD HARD PEBBLE OF BM HE STATED IT. NO BLADDER DISTENTION NOTED DURING MANUAL AUSCULTATION, HAS BEEN VOIDING LARGE AMOUNTS QS OF CLEAR URINE. WILL CONTIUE TO OBSERVE. TOLERATING LIQUIDS WELL, FEMALE FRINED IN ROOM
--- NOTE | 2020-11-04 23:32 | NUR ---
C/O CONSTIPATION, MEDICATED WITH MILK OF MAG . DR MCKEON NOTIFIED OF PTS C/O MEYBE THE STOMACH INFLAMATION HAS GODO DOWN TO HIS BLADDER HE IS HAVING TROUBLE URINATING. NO NEW ORDERS. NOTIFIED VERBALL AT THIS TIME. AND UPDATE ON PTS
--- NOTE | 2020-11-05 03:25 | NUR ---
resting, ivf infusing, in bed tele#2 tachy at times, MANAGER PERSONAL in place, good pain relief
--- NOTE | 2020-11-05 03:42 | NUR ---
ADMINISTERED TYLENOL FOR 4/10 HEADACHE. PT DENIES FURTHER NEEDS, CALL LIGHT IS CLOSE.
--- NOTE | 2020-11-05 04:05 | NUR ---
EXECUTIVE CHEF ASSISTANT PUMP WAS BEEPING, CHANGED CARTRIDGE WITH HELP OF DUDLEY REYES. PT DENIES FURTHER NEEDS. CALL LIGHT IS CLOSE.
--- NOTE | 2020-11-05 05:37 | NUR ---
PT HAS SLEPT OFF AND ON. ON ROOM AIR. HAS BELL PERSON FOR ABD PAIN CONTROL WITH GOOD RELIEF. C/O URINARY PROBLEMS, DR HERNANDEZ NOTIFIED VERBALLY LAST NIGHT BY THIS RN, NO NEW ORDERS, PT VOIDING MEDIUM COLORED YELLOW URINE, NO UNUSUAL SMELLS OR COLORS NOTED, QS. RECEIVED MOM ON REQUESTS HE IS CONCERNED ABOUT NOT HAVING HAD GOOD BOWEL MOVEMENTS. NOT EFFECTIVE YET. TELECPOX IN PLACE, SATS 98% ROOM AIR, TELE#2 SR AND TACHYCHARDIC AT TIMES, TOLERATING LIQUIDS WELL, NO EMESIS. IVF INFUSING W/O PROBLEMS
--- NOTE | 2020-11-05 06:19 | NUR ---
awake, sitting in bed, no c/o bladder discomofrt. ivf infusing, tolerating liquids well
--- NOTE | 2020-11-05 08:00 | NUR ---
REPORT RECEIVED FROM NIGHT RN AND PT. CARE RESUMED. PT. IS ALERT AND ORIENTED. HE REPORTS PAIN HAS BEEN WELL CONTROLLED WITH MULTIPLE PRESSURE RIVETER OPERATOR. HE STATES PAIN IS IN LUQ AND BLADDER AREA. URINE IS CLEAR AND DILUTE. RIGHT AC IV IS LEAKING WHEN FLUSHED AND REMOVED WITH CATH INTACT. LUNGS CLEAR THROUGHOUT. DISCUSSED ADVANCING DIET AT LUNCH, PAIN CONTROL AND MEDS. PT. LEFT RESTING WITH GIRLFRIEND AT BEDSIDE.
--- NOTE | 2020-11-05 09:44 | NUR ---
CONSULT RECEIVED FOR DIET EDUCATION FOR HIGH TRIGLYCERIDES. PATIENT IS RESTING IN BED WITH HIS GIRLFRIEND. HE DIDN'T MIND ME TALKING TO HIM RIGHT NOW. HE IS INTERESTED IN CHANGING HIS DIET SO HE CAN GET BETTER. HE DOESN'T DRINK SUGARY BEVERAGES ANYMORE WHICH IS GREAT. I EXPLAINED THAT HE WILL NEED TO CONTINUE TO KEEP HIS ADDED SUGAR INTAKE LOW BECAUSE EXCESS SUGAR TURNS INTO TRIGLYCERIDES. I ALSO EXPLAINED FRUITS, VEGGIES, WHOLE GRAINS, LEAN PROTEINS, AND HEART-HEALTHY FATS ARE WHAT HE SHOULD CONSUME THE MAJORITY OF THE TIME. HE SAYS HE EATS A LOT OF CHICKEN AND RICE SOMETIMES WITH BROCCOLI. I SUGGESTED HE TRY A SHRIMP OR LEAN BEEF STIR-BERG, FOR EXAMPLE. HE UNDERSTANDS TO LIMIT HIS CONSUMPTION OF REFINED CARBS. HE LIKES FISH SO I ENCOURAGED HIM TO EAT MORE FISH BUT DO NOT BERG IT - BAKE, GRILL OR BROIL IT INSTEAD. HE APPRECIATED MY TIME. HE PLANS TO READ OVER THE HANDOUT I PROVIDED ONCE HE GETS HOME. MY NAME AND OFFICE # PROVIDED IN CASE HE HAS FURTHER QUESTIONS IN THE FUTURE.
--- NOTE | 2020-11-05 11:17 | NUR ---
PT. TEMPORARILY DISCONNECTED FROM IVF AND TOOL LIAISON TO SHOWER. AMBULATING INDEPENDENTLY AND PAIN TOLERABLE AT THIS TIME. ADMINISTRATIVE ANALYST IN THE ROOM.
--- NOTE | 2020-11-05 13:54 | NUR ---
PT. OFFSET PLATE MAKER DILAUDID VIAL CHANGED WITH CHARGE NURSE. PT. REPORTS WORSENING PAIN AFTER EATING SOUP AND WITH OFFSET PLATE MAKER BEING TEMPORARILY DISCONNECTED. HE REPORTS CONTINUED PAIN IN LUQ AND LOWER PELVIC AREA. IV SITE WNL AND FLUSHES WELL. LUNGS CLEAR THROUGHOUT. GIRLFRIEND IN THE ROOM SLEEPING. PT. DENIES FURTHER NEEDS. LEFT RESTING WITH CALL LIGHT IN REACH.
--- NOTE | 2020-11-05 19:55 | NUR ---
pt voiding clear yellow urine, in bed watching tv, encouraged to ambulate, "I did that earlier, im tires now", on room air, tele #2 dc'd as per drs orders. EMT I/99 cartridge changed, abd pain 08/14. fair relief with social service director
--- NOTE | 2020-11-05 20:43 | NUR ---
PT REPORTS HE HAD HIS FIRST BM IN DAYS AND THERE WAS BLOOD IN STOOL AND WHEN HE WIPED. THIS OPERATIONS BOARDMAN VISULIZED STOOL IN TOILET, STOOL HARD/LUMPS, MED IN SIZE, THERE APPEARS TO BE BRIGHT RED BLOOD MIXED WITH STOOL AND ON TOILET PAPER. RN NOTIFIED.
--- NOTE | 2020-11-05 20:54 | NUR ---
PT STATED THAT HE HAD A VERY HARD STOOL, AND HAD STREAK OF RED AND HE HAD RED STREAKS IN TOILET PAPER WHEN HE WIPED. DR HERNANDEZ NOTIFIED VERBALLY, NO NEW ORDERS. ABD SOFT FREEDOM, PT SITTING UP IN BED, WATCHING TV, CPOX AT BEDSIDE, IVF AND PLUMBER HELPER INFUSING. TOLERATING FULL LIQUIDS WELL. ALERT AND ORIENTED, COOP WITH ASSESSMENT
--- NOTE | 2020-11-06 01:18 | NUR ---
IN BED, EYES CLOSED, ON ROOM AIR, NO DISTRESS, ROOF TECHNICIAN/IVF INFUSING. NO FURTHER C/O RED STREAKS ON BM, VOIDING QS, TOLERATING LIQUIDS ND ENSURE WELL. CPOX AT BEDSIDE
--- NOTE | 2020-11-06 01:30 | NUR ---
FRESH WATER AND ENSURE GIVEN, C/O H/A, MEDICATED WITH TYLENOL PO
--- NOTE | 2020-11-06 04:26 | NUR ---
Pt has slept off and on this shift, on room air, IVF and BOWLING BALL FINISHER Dilaudid, abd pain with good to fair pain relief. voiding QS, had one hard bm with red straks, Dr Cabral notified, no new orders, pt aware to notify nursing staff if it happens agin, no c/o bladder problems. Tolerting liquids well, no emesis. encouraged to ambulate hallways. semireceptive to ambulation. Has been medicated per c/o h/a w Tylenol X2, effective.
--- NOTE | 2020-11-06 07:00 | NUR ---
Report received from Nasima. Will continue plan of care
--- NOTE | 2020-11-06 08:30 | NUR ---
Scheduled medications administered, assessment complete. Pt reports using dilaudid HEAT TREAT PULLER frequently and requests tylenol for headache. Pt also states feeling hungry and wants a sandwich, tells this RN when eating has recurring abd pain and nausea. Plan of care reviewed and pt is agreeable. Lung sounds clear, bowel tones active. Pt has no further needs at this time, call light in reach.
--- NOTE | 2020-11-06 12:15 | NUR ---
GREEN MEAT GRADER DC'd per orders, PRN oxycodone administered, pt states feeling better at this time. IVF discontinued as well. Pt's father in room with him, no further needs at this time
--- NOTE | 2020-11-06 15:05 | NUR ---
PRN dilaudid and tylenol administered for 8/10 pain and headache. VSS, I/0's complete. Assessment complete and remains unchanged, pt states feeling "overall better" but pain is major concern. He reports having little to no appetite, but would like an ensure. No other needs at this time, call light in reach.
--- NOTE | 2020-11-06 17:18 | NUR ---
PRN medication administered for 8/10 pain. Pt sitting up in bed, in good spirits, questions re: care plan answered. Ice water provided, no further needs at this time.
--- NOTE | 2020-11-06 18:40 | NUR ---
PATIENT SITTING UP IN BED WATCHING TV. VITALS AND I&O'S CHARTED. CALL LIGHT IN REACH. NO FURTHER NEEDS AT THIS TIME.
--- NOTE | 2020-11-06 18:55 | NUR ---
Pt medicated with PRN oxycodone, states vomited after drinking ensures. Pt states no needs at this time, call light in [facility].
[2020-11-06] MEDS ORDERED: OXYCODONE HCL5 MG PO (19:55)
[2020-11-06] MEDS ORDERED: CREON DR 6,0001 EACH PO (19:56)
[2020-11-06] MEDS ORDERED: PROTONIX40 MG PO (19:56)
[2020-11-06] MEDS ORDERED: ONDANSETRON ODT8 MG PO (19:56)
--- NOTE | 2020-11-06 20:54 | NUR ---
SITTING UP IN BED, C/O ABD CRAMPING AND INCREASED PAIN, MEDICATED WITH DILAUDID 1MG IV. MELATONING GIVEN PER INSOMNIA. ON ROOM AIR, CLEAR LUNGS, ABD SOFT, FREEDOM, NO BM TODAY. VOIDING QS, TOLERATING FULL LIQUIDS WELL, NO EMESIS THIS SHIFT. COOPERATIVE, ENCOURAGED TO AMBULATE, RECEPTIVE. COOP WITH ASSESSMENT
--- NOTE | 2020-11-06 23:10 | NUR ---
PT AMBULATED [address], 2 LAPS, IND.
--- NOTE | 2020-11-06 23:26 | NUR ---
PT AMBULATING HALLWAYS, TOLERATING WELL, NO FURTHER C/O PAIN.
--- NOTE | 2020-11-06 23:37 | NUR ---
RESTING, EYES CLOSED, ON 2L NC, TELE/CPOX #4, 94%, LAYING ON LEFT SIDE. FLUIDS AND CALL LIGHT AT BEDSIDE, TURNS AND REPOSITIONS SELF
--- NOTE | 2020-11-07 00:15 | NUR ---
ambulating in short hallway, c/o h/a, medicated with Tylenol. broth given on request, tolerating fluids well.
--- NOTE | 2020-11-07 04:00 | NUR ---
resting, eyes closed, no distress, turns self in bed, voiding [id number]
--- NOTE | 2020-11-07 05:46 | NUR ---
awakes easily, c/o 08/14 abd pain, medicated with 1 Oxycodone 5mg po. voiding large amounts of qs yellow urine, tolerating full liquid diet. turns and repositions self in bed
--- NOTE | 2020-11-07 05:51 | NUR ---
pt on room air, has been medicated twice per c/o abd pain with dilaudid iv x1 and oxycodone 5mg po, with Tylenol 2x per c/o h/a with good pain relief. tolerating liquid well, no emesis, ambulated hallways. slept, voiding QS, no c/o urinary or bowel problems. no bm since 11/05/20
--- NOTE | 2020-11-07 07:00 | NUR ---
Report received from Nasima REYES. Pt resting with no needs at this time, will continue plan of care.
--- NOTE | 2020-11-07 08:25 | NUR ---
Scheduled protonix administered, pt reports having 7/10 pain, noted to be quietly crying at this time. Pt consoled, PRN pain medication administered. Pt states no other needs, using phone at this time. Encouraged to call with any needs.
--- NOTE | 2020-11-07 10:00 | NUR ---
Pt medicated with PRN oxycodone prior to discharge. He states no further needs, will return shortly
--- NOTE | 2020-11-07 10:30 | NUR ---
Discharge teaching provided to patient who verbalizes understanding, all questions answered. Education provided regarding current illness, low fat diet, medications and written materials given. IV removed, site WNL. Pt dressed and awaiting friend to provide ride home.
== END 2020-11-07 11:15 | disposition home or self-care (01) | DRG 439 ==
LOC: ED 13:14 → MS 18:04
PROVIDERS: ADMIT Internal Medicine; ATTEND Internal Medicine
DX: K85.90 Acute pancreatitis without necrosis or infection, unspecified (principal); R65.10 Systemic inflammatory response syndrome (SIRS) of non-infectious origin without acute organ dysfunction; E78.1 Pure hyperglyceridemia; Z20.822 Contact with and (suspected) exposure to COVID-19
CPT/HCPCS: 74177; 80048; 80053; 80061; 81001; 83690; 83735; 85025; 94762; 96375; 96376; 99285-25; C9113; C9803; J1170; J1885; J2405; J3480; J7030; J7120; J7121; Q9967; U0003

== ENCOUNTER 2020-12-18 16:45 | Emergency (ER) | payer SELFPAY ==
[~2020-12-18] VITALS: Ht 182.9 cm; Wt 108.4 kg
[~2020-12-18 16:45] MED LIST changes: +CREON DR 6,0001 EACH PO; +ONDANSETRON ODT8 MG PO; +OXYCODONE HCL5 MG PO; +PROTONIX40 MG PO
== END 2020-12-18 19:45 | disposition home or self-care (01) ==
LOC: ED 16:45
PROC: 0HQGXZZ Repair Left Hand Skin, External Approach (ICD-10-PCS; principal; 2020-12-18)
DX: S61.412A Laceration without foreign body of left hand, initial encounter (principal); Z23 Encounter for immunization; W31.89XA Contact with other specified machinery, initial encounter; Z79.899 Other long term (current) drug therapy
CPT/HCPCS: 12001; 73130; 90471; 90715; 99283-25